=== PATIENT | female | born 1985 | race Caucasian/White ===

== ENCOUNTER 2019-08-30 10:26 | Inpatient (IN) | payer BC, OTHER ==
[~2019-08-30] VITALS: Ht 172.7 cm; Wt 73.8 kg
[2019-08-30] MEDS ORDERED: SODIUM CHLORIDE 0.9% 1,000 ML IV ONE ×2 (11:15→16:00)
[2019-08-30] MEDS ORDERED: PROMETHAZINE HCL 25 MG/ML 1ML IV ONE ×2 (11:30→14:15)
[2019-08-30 11:32] LABS: Basophils # (auto) 0.1 10 ^3/uL (0-0.2); Basophils % (auto) 0.6 % (0.0-2.0); Eosinophils # (auto) 0 10 ^3/uL (0-0.8); Hematocrit 42.5 % (36.0-46.0); Hemoglobin 14.3 g/dL (12.2-16.2); Lymphocytes # (auto) 1.8 10 ^3/uL (0.4-5.4); Lymphocytes % (auto) 8.4 % (10.0-50.0); Mean Corpuscular Hemoglobin 28.7 pg (28.0-32.0); Mean Corpuscular Hgb Conc. 33.8 g/dL (32.0-36.0); Mean Corpuscular Volume 85.1 fL (80.0-100.0); Monocytes # (auto) 1.1 10 ^3/uL (0-1.3); Monocytes % (auto) 4.9 % (0.0-12.0); Neutrophils # (auto) 18.8 10 ^3/uL (1.6-8.6); Neutrophils % (auto) 86.1 % (37.0-80.0); Platelet Count (auto) 344 10^3/uL (140-450); Red Blood Cells 4.99 10^6/uL (4.0-5.20); Red Cell Distribution Width 12.3 % (11.8-14.3); White Blood Cell 21.8 10^3/uL (4.4-10.8)
[2019-08-30] MEDS ORDERED: SODIUM CHLORIDE 0.9% 1,000 ML IVB ONE (11:40)
[2019-08-30 11:46] LABS: Albumin 4.5 g/dL (3.4-5.0); Calcium 9.7 mg/dL (8.5-10.1); Potassium 3.3 mmol/L (3.5-5.1)
[2019-08-30 11:50] LABS: BUN/Creatinine Ratio 15.9; Bilirubin, Total 1.1 mg/dL (0.2-1.0); Total Protein 8.6 g/dL (6.4-8.2)
[2019-08-30 12:53] LABS: Magnesium 2.3 mg/dL (1.6-2.6)
[2019-08-30] MEDS ORDERED: ONDANSETRON HCL 4 MG/2 ML VIAL IV ONE ×2 (13:30→16:00)
[2019-08-30 13:54] LABS: Urine Bacteria FEW /hpf (None Seen); Urine Blood Negative /uL (Negative); Urine Specific Gravity 1.036 (1.001-1.035); Urine WBC 4 /hpf (0 - 5)
[2019-08-30] MEDS ORDERED: cefTRIAXone 1GM/50ML D5W 50 ML IV ONE (14:00)
[2019-08-30] MEDS ORDERED: metroNIDAZOLE 500MG/100ML 100 ML IV ONE (14:00)
[2019-08-30] MEDS ORDERED: MORPHINE SULF INJ 2 MG/ML SYRINGE 1ML IV ONE (14:15)
[2019-08-30] MEDS: POTASSIUM CHL 20MEQ/100ML 100 ML IV SCH ×2 (14:24→15:30)
[2019-08-30 14:26] LABS: Lactic Acid w/Reflex 2.2 mmol/L (0.4-2.0)
[2019-08-30] MEDS ORDERED: MORPHINE SULF INJ 2 MG/ML SYRINGE 1ML IV PRN (16:00)
[2019-08-30] MEDS: SOD CHL 0.9%/ KCL 20MEQ 1,000 ML IV SCH (16:00)
[2019-08-30] MEDS ORDERED: NITROGLYCERIN 0.4 MG SL TAB SL PRN (16:00)
[2019-08-30] MEDS ORDERED: ACETAMINOPHEN 500 MG TAB PO PRN (16:00)
[2019-08-30] MEDS ORDERED: ONDANSETRON HCL 4 MG/2 ML VIAL IV PRN ×2 (16:00→17:15)
[2019-08-30 16:33] LABS: Alcohol, Urine < 3.0 mg/dL (0-10); Amphetamine Screen, Urine NEGATIVE (NEGATIVE); Barbiturate Scree,Urine NEGATIVE (NEGATIVE); Benzodiazephine Screen, Urine NEGATIVE (NEGATIVE); Cannabinoid Screen, Urine POSITIVE (NEGATIVE); Cocaine Screen, Urine NEGATIVE (NEGATIVE); Phencyclidine Screen, Urine NEGATIVE (NEGATIVE)
[2019-08-30 16:40] LABS: Opiate Scree,Urine POSITIVE (NEGATIVE)
[2019-08-30] MEDS: PROMETHAZINE HCL 25 MG/ML 1ML IV PRN (16:44)
[2019-08-30] MEDS: MORPHINE SULF INJ 2 MG/ML SYRINGE 1ML IV PRN ×2 (16:44→21:17)
[2019-08-30] MEDS ORDERED: LORazepam 2MG/ML-1ML VIAL ONE (18:27)
[2019-08-30] MEDS: LORazepam 2MG/ML-1ML VIAL IV PRN (19:03)
[2019-08-30 19:20] VITALS: BP 135/75
--- NOTE | 2019-08-30 19:20 | NUR ---
Telemetry admit from [facility] admitted to Telemetry unit after SBAR received. Patient oriented to BLOSSOM GIRALDO, RN primary RN, unit, room, bed, and unit policies regarding patient care and visiting hours. Patient now on continuous telemetry monitoring, tele box # 65 and telemetry reading on arrival to unit is . Patient placed on bedside oxygen, weighed by bedscale and encouraged to call if they need something. All questions and concerns addressed, patient verbalized understanding. Note: Patient really sleeping, not responding to admission questions.
--- NOTE | 2019-08-30 19:25 | NUR ---
Admission Patient behavior was really fatigued and sleepy. patient only answered half of the questions and would fall asleep on mid answered. Patient stated to [place] of [place] and does not have a pharmacy near by.
[2019-08-30 20:00] VITALS: BP 135/75
[2019-08-30] MEDS: metroNIDAZOLE 500MG/100ML 100 ML IV SCH (20:58)
--- NOTE | 2019-08-30 21:17 | NUR ---
Pain Patient c/o pain /10 to abdomen, pain medication administered.
--- NOTE | 2019-08-30 21:47 | NUR ---
Re Pain Patient resting with eyes closed, no sign of pain or distress. Will continue to monitor.
--- NOTE | 2019-08-31 00:30 | NUR ---
MRSA MRSA swab sent to lab.
--- NOTE | 2019-08-31 03:09 | NUR ---
Nausea Patient c/o nausea, nausea medication administered.
[2019-08-31] MEDS: MORPHINE SULF INJ 2 MG/ML SYRINGE 1ML IV PRN ×5 (03:15→22:36)
--- NOTE | 2019-08-31 03:15 | NUR ---
Pain Patient c/o pain /10 to abdomen, pain medication Administered.
--- NOTE | 2019-08-31 03:39 | NUR ---
Re Nausea Patient resting with eyes closed, no signs of pain, nausea or distress. will continue to monitor.
--- NOTE | 2019-08-31 03:45 | NUR ---
Re Pain Patient resting with eyes closed, no signs of pain or distress. will continue to monitor.
[2019-08-31] MEDS: metroNIDAZOLE 500MG/100ML 100 ML IV SCH ×3 (05:57→21:34)
[2019-08-31 06:02] LABS: Basophils # (auto) 0 10 ^3/uL (0-0.2); Basophils % (auto) 0.2 % (0.0-2.0); Eosinophils # (auto) 0 10 ^3/uL (0-0.8); Eosinophils % (auto) 0.1 % (0.0-7.0); Hematocrit 41.5 % (36.0-46.0); Hemoglobin 14.2 g/dL (12.2-16.2); Lymphocytes # (auto) 2.1 10 ^3/uL (0.4-5.4); Lymphocytes % (auto) 10.5 % (10.0-50.0); Mean Corpuscular Hemoglobin 29.2 pg (28.0-32.0); Mean Corpuscular Hgb Conc. 34.2 g/dL (32.0-36.0); Mean Corpuscular Volume 85.5 fL (80.0-100.0); Monocytes # (auto) 1.6 10 ^3/uL (0-1.3); Neutrophils # (auto) 16.3 10 ^3/uL (1.6-8.6); Neutrophils % (auto) 81.2 % (37.0-80.0); Platelet Count (auto) 296 10^3/uL (140-450); Red Blood Cells 4.85 10^6/uL (4.0-5.20); Red Cell Distribution Width 12.7 % (11.8-14.3); White Blood Cell 20.1 10^3/uL (4.4-10.8)
[2019-08-31 06:29] LABS: Potassium 3.4 mmol/L (3.5-5.1)
[2019-08-31 06:51] LABS: BUN/Creatinine Ratio 12.5; Bilirubin, Total 1.3 mg/dL (0.2-1.0); Calcium 8.4 mg/dL (8.5-10.1); Total Protein 7.5 g/dL (6.4-8.2)
--- NOTE | 2019-08-31 07:09 | NUR ---
Closing Note patient status unchanged, endorsed care to dayshift nurse.
--- NOTE | 2019-08-31 07:30 | NUR ---
RECEIVED REPORT FROM NIGHT NURSE. PATENT RESTING IN BED, NO DISTRESS NOTED. WILL CONTINUE TO MONITOR.
[2019-08-31 09:00] VITALS: BP 126/62
[2019-08-31] MEDS: PROMETHAZINE HCL 25 MG/ML 1ML IV PRN (09:31)
[2019-08-31] MEDS: cefTRIAXone 1GM/50ML D5W 50 ML IV SCH (09:31)
[2019-08-31] MEDS: PANTOPRAZOLE 40 MG/10 ML VIAL INJ IV SCH (09:31)
[2019-08-31] MEDS: SOD CHL 0.9%/ KCL 20MEQ 1,000 ML IV SCH ×3 (09:32→15:19)
[2019-08-31 13:07] VITALS: BP 127/75
[2019-08-31] MEDS: PROCHLORPERAZINE EDISYLATE 5 MG/ML 2ML VIAL IV PRN ×3 (13:38→22:43)
[2019-08-31 16:59] VITALS: BP 129/62
--- NOTE | 2019-08-31 19:20 | NUR ---
Opening Shift Note Assumed care of patient, awake and alert. No S/S of distress/SOB or pain. Instructed on POC and to call for assist PRN, will continue to monitor for changes Q1hr and PRN.
--- NOTE | 2019-08-31 19:25 | NUR ---
RE Pain "my pain is 5 for now" will continue to monitor.
--- NOTE | 2019-08-31 21:10 | NUR ---
RE Temperature 98.4, will continue to monitor.
[2019-08-31 22:00] VITALS: BP 120/75
--- NOTE | 2019-08-31 22:36 | NUR ---
Pain Patient c/o pain 09/17 to abdomen, pain medication administered
--- NOTE | 2019-08-31 23:06 | NUR ---
RE Pain Patient resting with eyes closed, no signs of distress or pain. will continue to monitor.
[2019-09-01] MEDS: PROCHLORPERAZINE EDISYLATE 5 MG/ML 2ML VIAL IV PRN ×2 (02:36→20:21)
[2019-09-01] MEDS: MORPHINE SULF INJ 2 MG/ML SYRINGE 1ML IV PRN ×3 (02:37→20:26)
--- NOTE | 2019-09-01 02:37 | NUR ---
Pain & Nausea Patient c/o nausea and pain 09/17. pain & nausea medication administered.
--- NOTE | 2019-09-01 03:07 | NUR ---
RE Pain Patient resting with eyes closed, no sign of pain or distress. will continue to monitor.
[2019-09-01 05:00] VITALS: BP 119/73
[2019-09-01] MEDS: metroNIDAZOLE 500MG/100ML 100 ML IV SCH ×3 (05:27→22:07)
[2019-09-01] MEDS: SOD CHL 0.9%/ KCL 20MEQ 1,000 ML IV SCH ×4 (05:36→22:17)
[2019-09-01 05:43] LABS: Basophils # (auto) 0.1 10 ^3/uL (0-0.2); Basophils % (auto) 0.5 % (0.0-2.0); Eosinophils # (auto) 0 10 ^3/uL (0-0.8); Eosinophils % (auto) 0.2 % (0.0-7.0); Hematocrit 41.3 % (36.0-46.0); Hemoglobin 14.2 g/dL (12.2-16.2); Lymphocytes # (auto) 2.1 10 ^3/uL (0.4-5.4); Lymphocytes % (auto) 16.5 % (10.0-50.0); Mean Corpuscular Hemoglobin 29.1 pg (28.0-32.0); Mean Corpuscular Hgb Conc. 34.4 g/dL (32.0-36.0); Mean Corpuscular Volume 84.6 fL (80.0-100.0); Monocytes # (auto) 1.1 10 ^3/uL (0-1.3); Monocytes % (auto) 8.5 % (0.0-12.0); Neutrophils # (auto) 9.5 10 ^3/uL (1.6-8.6); Neutrophils % (auto) 74.3 % (37.0-80.0); Platelet Count (auto) 293 10^3/uL (140-450); Red Blood Cells 4.89 10^6/uL (4.0-5.20); Red Cell Distribution Width 12.8 % (11.8-14.3); White Blood Cell 12.8 10^3/uL (4.4-10.8)
[2019-09-01 06:01] LABS: BUN/Creatinine Ratio 14.7; Calcium 8.3 mg/dL (8.5-10.1); Magnesium 2.4 mg/dL (1.6-2.6); Potassium 3.4 mmol/L (3.5-5.1)
--- NOTE | 2019-09-01 07:26 | NUR ---
Closing Note Patient status unchanged, endorsed care to dayshift nurse.
[2019-09-01 08:54] VITALS: BP 116/76
[2019-09-01] MEDS: cefTRIAXone 1GM/50ML D5W 50 ML IV SCH (10:00)
[2019-09-01] MEDS: PANTOPRAZOLE 40 MG/10 ML VIAL INJ IV SCH (10:00)
--- NOTE | 2019-09-01 10:12 | NUR ---
Est energy needs 3068-5650 kcal (25-27 kcal/kg BW 77kg) Est protein needs 62-77g (0.8-1g/kg BW 77kg) Will reassess prn. Addendum: 09/01/19 at [address] Amended: Links added.
[2019-09-01] MEDS ORDERED: POTASSIUM EFFERVESENT TAB 25 MEQ PO ONE (12:00)
[2019-09-01 13:00] VITALS: BP 140/87
[2019-09-01 13:49] LABS: INR 1.01 (0.9-1.15)
[2019-09-01] MEDS: PROMETHAZINE HCL 25 MG/ML 1ML IV PRN (14:43)
[2019-09-01 17:17] VITALS: BP 125/68
--- NOTE | 2019-09-01 20:26 | NUR ---
Pain & Nausea patient c/o pain / to abdominal pain and nausea. pain medication and nausea medication administered.
--- NOTE | 2019-09-01 21:06 | NUR ---
RE Pain Patient resting with eyes closed, no sign of pain or distress. will continue to monitor. Addendum: 09/01/19 at 2308 by BLOSSOM GIRALDO RN RN Actual time 2055
[2019-09-01 22:00] VITALS: BP 117/79
[2019-09-01] MEDS: LORazepam 2MG/ML-1ML VIAL IV PRN (22:07)
[2019-09-02] VITALS (7 sets, daily range): BP systolic 96–133; BP diastolic 60–81
[2019-09-02] MEDS: metroNIDAZOLE 500MG/100ML 100 ML IV SCH ×3 (06:00→21:13)
[2019-09-02 06:04] LABS: Basophils # (auto) 0.1 10 ^3/uL (0-0.2); Basophils % (auto) 0.6 % (0.0-2.0); Eosinophils # (auto) 0.1 10 ^3/uL (0-0.8); Eosinophils % (auto) 0.7 % (0.0-7.0); Hematocrit 43.8 % (36.0-46.0); Hemoglobin 14.8 g/dL (12.2-16.2); Lymphocytes # (auto) 2.9 10 ^3/uL (0.4-5.4); Lymphocytes % (auto) 24.4 % (10.0-50.0); Mean Corpuscular Hemoglobin 28.9 pg (28.0-32.0); Mean Corpuscular Hgb Conc. 33.9 g/dL (32.0-36.0); Mean Corpuscular Volume 85.2 fL (80.0-100.0); Monocytes # (auto) 0.9 10 ^3/uL (0-1.3); Monocytes % (auto) 7.5 % (0.0-12.0); Neutrophils # (auto) 7.8 10 ^3/uL (1.6-8.6); Neutrophils % (auto) 66.8 % (37.0-80.0); Platelet Count (auto) 314 10^3/uL (140-450); Red Blood Cells 5.15 10^6/uL (4.0-5.20); Red Cell Distribution Width 12.3 % (11.8-14.3); White Blood Cell 11.7 10^3/uL (4.4-10.8)
--- NOTE | 2019-09-02 06:10 | NUR ---
IV removal IV DC'd with clean sterile technique, catheter fully intact. Pressure dressing applied to site. Patient tolerated well.
--- NOTE | 2019-09-02 06:15 | NUR ---
IV insertion IV access obtained, via clean sterile technique by inserting 22 gauge catheter at after attempts. IV secured properly. No trauma to site. Patient tolerated well.
[2019-09-02] MEDS: PROCHLORPERAZINE EDISYLATE 5 MG/ML 2ML VIAL IV PRN ×2 (06:31→12:16)
--- NOTE | 2019-09-02 06:31 | NUR ---
Nausea Meds Patient c/o nausea, nausea medication administered.
--- NOTE | 2019-09-02 06:35 | NUR ---
POA Patient is requesting POA information to get her more involved with [facility]. Will endorsed information to day shift nurse.
[2019-09-02 06:39] LABS: Potassium 3.5 mmol/L (3.5-5.1)
[2019-09-02 06:53] LABS: BUN/Creatinine Ratio 11.5; Calcium 8.5 mg/dL (8.5-10.1); Magnesium 2.6 mg/dL (1.6-2.6)
--- NOTE | 2019-09-02 07:25 | NUR ---
Closing Note Patient status unchanged, endorsed care to dayshift nurse.
[2019-09-02] MEDS: SOD CHL 0.9%/ KCL 20MEQ 1,000 ML IV SCH ×3 (08:00→23:24)
[2019-09-02] MEDS: PANTOPRAZOLE 40 MG/10 ML VIAL INJ IV SCH ×2 (09:08→21:14)
[2019-09-02] MEDS: cefTRIAXone 1GM/50ML D5W 50 ML IV SCH (09:08)
[2019-09-02] MEDS ORDERED: SODIUM CHLORIDE LOCK 10 ML ONE (12:40)
[2019-09-02] MEDS ORDERED: LIDOCAINE VISCOUS 2% 15ML UD ONE (12:41)
--- NOTE | 2019-09-02 13:02 | NUR ---
PAIN MEDICATION SPOKE WITH DR. MURRAY, MADE AWARE PT IS ASKING FOR PAIN MEDICATION OTHER THAN MORPHINE BECAUSE IT MAKES HER NAUSEOUS. RECEIVED ORDER FOR DILAUDID 0.5 MG IV Q 6HRS PRN FOR PAIN.
--- NOTE | 2019-09-02 14:04 | NUR ---
pt transported to pre-op via bed, pt is awake and alert, no signs of distress, consents for procedure signed.
[2019-09-02] MEDS: fentaNYL CITRATE 100 MCG/2 ML VL ONE ×3 (14:26→14:32)
[2019-09-02] MEDS: MIDAZOLAM HCL 5 MG/ML-1ML VIAL ONE ×3 (14:26→14:32)
[2019-09-02] MEDS: diphenhdrAMINE HCL 50 MG/1 ML VL ONE ×2 (14:27→14:33)
--- NOTE | 2019-09-02 15:40 | NUR ---
received pt from PACU via bed, pt is drowsy but arousable, vital signs are stable, will continue to monitor.
[2019-09-02] MEDS: SUCRALFATE 1 GM/10 ML ORAL SUSP PO SCH ×2 (17:31→21:14)
--- NOTE | 2019-09-02 19:00 | NUR ---
Opening Shift Note Assumed care of patient, awake and alert. No S/S of distress/SOB or pain. Instructed on POC and to call for assist PRN, will continue to monitor for changes Q1hr and PRN. Patient in the lowest possible position with bed rails up x2 and call light within reach.
--- NOTE | 2019-09-02 20:00 | NUR ---
MD Charla abreu MD pagearmin to clarify orders for patients colonoscopy. Order to 09/03/19 at 0500 to obtain consent for, but patient is not scheduled to receive golytly until 09/02 at 1400. Called to clarify if patient will be going in the AM or for another time. Surgery schedule does not show that patient is on for tomorrow. Waiting for call back.
[2019-09-02] MEDS: HYDROmorphone HCL 2 MG/ML VL IV PRN (21:14)
[2019-09-02] MEDS: PROMETHAZINE HCL 25 MG/ML 1ML IV PRN (21:27)
--- NOTE | 2019-09-02 23:01 | NUR ---
called back. Clarification given. Patient to go for colonoscopy on Saturday09/04/2019 and will start the gol09/03/2019 at 1400 to prepare patient. Will endorse clarification to AM nurse.
[2019-09-03 05:00] VITALS: BP 144/66
[2019-09-03] MEDS: metroNIDAZOLE 500MG/100ML 100 ML IV SCH ×3 (05:33→21:56)
[2019-09-03] MEDS: PROMETHAZINE HCL 25 MG/ML 1ML IV PRN ×2 (05:34→20:26)
[2019-09-03] MEDS: HYDROmorphone HCL 2 MG/ML VL IV PRN ×2 (05:34→20:27)
[2019-09-03] MEDS: SUCRALFATE 1 GM/10 ML ORAL SUSP PO SCH ×4 (06:02→21:56)
[2019-09-03 06:19] LABS: Basophils # (auto) 0.1 10 ^3/uL (0-0.2); Basophils % (auto) 0.8 % (0.0-2.0); Eosinophils # (auto) 0.1 10 ^3/uL (0-0.8); Eosinophils % (auto) 1.2 % (0.0-7.0); Hematocrit 40.7 % (36.0-46.0); Lymphocytes # (auto) 2.2 10 ^3/uL (0.4-5.4); Lymphocytes % (auto) 23.5 % (10.0-50.0); Mean Corpuscular Hemoglobin 29.4 pg (28.0-32.0); Mean Corpuscular Hgb Conc. 34.5 g/dL (32.0-36.0); Mean Corpuscular Volume 85.2 fL (80.0-100.0); Monocytes # (auto) 0.8 10 ^3/uL (0-1.3); Monocytes % (auto) 8.9 % (0.0-12.0); Neutrophils # (auto) 6.2 10 ^3/uL (1.6-8.6); Neutrophils % (auto) 65.6 % (37.0-80.0); Nucleated Red Blood Cells % 0.2 %; Platelet Count (auto) 291 10^3/uL (140-450); Red Blood Cells 4.78 10^6/uL (4.0-5.20); Red Cell Distribution Width 12.6 % (11.8-14.3); White Blood Cell 9.5 10^3/uL (4.4-10.8)
[2019-09-03 06:39] LABS: Potassium 3.5 mmol/L (3.5-5.1)
[2019-09-03 06:47] LABS: Calcium 8.2 mg/dL (8.5-10.1)
[2019-09-03] MEDS: cefTRIAXone 1GM/50ML D5W 50 ML IV SCH (08:50)
[2019-09-03 09:00] VITALS: BP 114/65
[2019-09-03] MEDS: PROCHLORPERAZINE EDISYLATE 5 MG/ML 2ML VIAL IV PRN (09:13)
[2019-09-03] MEDS: PANTOPRAZOLE 40 MG/10 ML VIAL INJ IV SCH ×2 (09:20→21:56)
[2019-09-03] MEDS: SOD CHL 0.9%/ KCL 20MEQ 1,000 ML IV SCH ×2 (09:21→14:30)
[2019-09-03 13:00] VITALS: BP 113/66
[2019-09-03] MEDS ORDERED: GOLYTELY 4L KIT PO ONE (14:00)
--- NOTE | 2019-09-03 15:06 | NUR ---
Nutrition Followup Notes Pt wt is 74.5 kg Pt was sleeping with no relatives at bedside when rounded this morning. Pt is with a Clear Liquid diet, appetite is fair, aeb ave 63% x2 PO intake per RN doc. Noted pt is with nausea and some epigastric pain per MD doc. Will continue to monitor PO status, skin status, pertinent labs and weight trends. Will f/u in 2-3 days. Est energy needs 7483-1399 kcal (25-27 kcal/kg BW 77kg) Est protein needs 62-77g (0.8-1g/kg BW 77kg) Will reassess prn. LABS: Ca 8.2 L, GI: Pt had no BM noted per RN doc. BS: 20 low risk. Please refer to wound assessment report for full details. PES: Altered nutrition related labs r/t current medical condition aeb pt with elevated LFTs Inadequate oral intake r/t current medical condition aeb pt with clear liq diet order with 25% po intake per RN doc Comments 1) Continue to monitor po status, labs, skin 2) Refer pt to [facility] on DC 3) Continue current plan of care
[2019-09-03 16:47] VITALS: BP 117/70
--- NOTE | 2019-09-03 17:00 | NUR ---
IV insertion IV access obtained, via clean sterile technique by inserting 22 gauge catheter at after attempt(s). IV secured properly. No trauma to site. Patient tolerated well.
--- NOTE | 2019-09-03 19:30 | NUR ---
Opening Shift Note Assumed care of patient, awake and alert. Complain of nausea and pain. NPO after midnight for colonoscopy tomorrow. Instructed on POC and to call for assist PRN.
[2019-09-03 20:00] VITALS: BP 118/76
[2019-09-03 21:43] VITALS: BP 118/76
[2019-09-04] MEDS: SOD CHL 0.9%/ KCL 20MEQ 1,000 ML IV SCH ×2 (01:30→16:00)
[2019-09-04 05:25] LABS: Albumin 3.5 g/dL (3.4-5.0); Bilirubin, Direct 0.2 mg/dL (0-0.2)
[2019-09-04 05:26] LABS: INR 1.11 (0.9-1.15); Partial Thromboplastin Time 26.6 sec (23.64-32.05)
[2019-09-04 05:29] LABS: Bilirubin, Total 0.7 mg/dL (0.2-1.0); Total Protein 6.9 g/dL (6.4-8.2)
[2019-09-04 05:30] VITALS: BP 114/71
[2019-09-04] MEDS ORDERED: MAGNESIUM CITRATE SOLUTION 300 ML BTL PO ONE (06:00)
[2019-09-04] MEDS: SUCRALFATE 1 GM/10 ML ORAL SUSP PO SCH ×4 (06:00→21:29)
[2019-09-04] MEDS: metroNIDAZOLE 500MG/100ML 100 ML IV SCH ×3 (06:11→21:29)
[2019-09-04] MEDS: PROCHLORPERAZINE EDISYLATE 5 MG/ML 2ML VIAL IV PRN (06:25)
[2019-09-04] MEDS ORDERED: SODIUM CHLORIDE LOCK 10 ML ONE (08:13)
[2019-09-04] MEDS: HYDROmorphone HCL 2 MG/ML VL IV PRN ×2 (08:24→18:49)
[2019-09-04] MEDS: PANTOPRAZOLE 40 MG/10 ML VIAL INJ IV SCH ×2 (08:24→21:29)
[2019-09-04] MEDS: cefTRIAXone 1GM/50ML D5W 50 ML IV SCH (08:24)
[2019-09-04 09:00] VITALS: BP 127/85
[2019-09-04] MEDS: PROMETHAZINE HCL 25 MG/ML 1ML IV PRN ×2 (10:52→18:49)
[2019-09-04 13:00] VITALS: BP 133/90
--- NOTE | 2019-09-04 13:40 | NUR ---
Patient taken to preop via bed received by Nikkie HENDRIX. No distress noted at time of drop off.
[2019-09-04] MEDS: MIDAZOLAM HCL 5 MG/ML-1ML VIAL ONE ×4 (15:04→15:10)
[2019-09-04] MEDS: fentaNYL CITRATE 100 MCG/2 ML VL ONE ×3 (15:04→15:08)
[2019-09-04] MEDS: diphenhdrAMINE HCL 50 MG/1 ML VL ONE ×2 (15:04→15:06)
--- NOTE | 2019-09-04 16:00 | NUR ---
Patient back in unit. Resting in bed with even and unlabored respirations. No s/s of sob/ distress. Will continue to monitor.
[2019-09-04 17:00] VITALS: BP 112/60
--- NOTE | 2019-09-04 19:40 | NUR ---
Opening Shift Note Assumed care of patient, awake and alert. Complained of tolerable abdominal pain. Instructed on POC and to call for assist PRN, patient verbalized understanding. Safety precaution in place, call light within reach, will continue to monitor for changes Q1hr and PRN.
[2019-09-04 21:47] VITALS: BP 131/86
[2019-09-05] MEDS: HYDROmorphone HCL 2 MG/ML VL IV PRN ×3 (01:29→21:52)
[2019-09-05 05:43] VITALS: BP 103/68
[2019-09-05] MEDS: SOD CHL 0.9%/ KCL 20MEQ 1,000 ML IV SCH ×2 (05:59→18:43)
[2019-09-05] MEDS: metroNIDAZOLE 500MG/100ML 100 ML IV SCH ×3 (06:00→21:50)
[2019-09-05] MEDS: SUCRALFATE 1 GM/10 ML ORAL SUSP PO SCH ×4 (06:01→21:51)
[2019-09-05] MEDS: PROCHLORPERAZINE EDISYLATE 5 MG/ML 2ML VIAL IV PRN (07:52)
[2019-09-05] MEDS: PANTOPRAZOLE 40 MG/10 ML VIAL INJ IV SCH ×2 (08:38→21:51)
[2019-09-05] MEDS: cefTRIAXone 1GM/50ML D5W 50 ML IV SCH (08:38)
[2019-09-05 09:00] VITALS: BP 113/73
[2019-09-05] MEDS: PROMETHAZINE HCL 25 MG/ML 1ML IV PRN (12:42)
[2019-09-05 12:46] VITALS: BP 113/65
--- NOTE | 2019-09-05 14:01 | NUR ---
Spoke to Dr. Devon Castillo MD updated on patients status. Per MD patient is stable to discharge from GI perspective. Will notify hospitalist.
--- NOTE | 2019-09-05 15:28 | NUR ---
Nutrition Followup Notes wt: 73.8 kg Pt was sleeping with no relatives at bedside when rounded this morning. pt is now advanced to [facility] soft with inadequate PO of < 50% x 4per RN Est energy needs 3919-8902 kcal (25-27 kcal/kg BW 77kg) , Est protein needs 62-77g (0.8-1g/kg BW 77kg). Will reassess prn. LABS: CA 8.2 L, GI: Pt had 1 BM today per RN doc. BS: 20 low risk. Please refer to wound assessment report for full details. PES: Altered nutrition related labs r/t current medical condition aeb pt with elevated LFTs Inadequate oral intake r/t current medical condition aeb pt with clear liq diet order with 25% po intake per RN doc Comments 1) Continue to monitor po status, labs, skin 2) Refer pt to [facility] on DC 3) Continue current plan of care. F/u mod 3-5 days
[2019-09-05 17:00] VITALS: BP 107/66
--- NOTE | 2019-09-05 18:18 | NUR ---
IV insertion IV access obtained, via clean sterile technique by inserting 22 gauge catheter at right shoulder after 2 attempts. IV secured properly. No trauma to site. Patient tolerated well.
--- NOTE | 2019-09-05 18:20 | NUR ---
IV removal RFA IV DC'd with clean sterile technique, catheter fully intact. Pressure dressing applied to site. Patient tolerated well. NOTE: IV was reddened and painful to patient.
--- NOTE | 2019-09-05 19:25 | NUR ---
Opening Shift Note Assumed care of patient, AOX4. No S/S of distress/SOB. Fall and safety precautions in place. Call light within reach and able to use. Instructed on POC and to call for assist PRN, patient verbalized understanding and in agreement. Will continue to monitor for changes Q1hr and PRN.
[2019-09-05 22:00] VITALS: BP 122/62
[2019-09-06] MEDS: metroNIDAZOLE 500MG/100ML 100 ML IV SCH ×3 (05:27→21:15)
[2019-09-06] MEDS: SOD CHL 0.9%/ KCL 20MEQ 1,000 ML IV SCH ×2 (05:36→23:12)
[2019-09-06] MEDS: SUCRALFATE 1 GM/10 ML ORAL SUSP PO SCH ×4 (06:20→21:16)
[2019-09-06 06:29] VITALS: BP 106/67
--- NOTE | 2019-09-06 07:05 | NUR ---
CLOSING NOTE FALL AND SAFETY PRECAUTIONS IN PLACE. PATIENT IN NO S/S OF DISTRESS. CALL LIGHT WITHIN REACH AND ABLE TO USE. REPORT GIVEN TO DAY SHIFT RN.
[2019-09-06 07:52] LABS: Basophils # (auto) 0 10 ^3/uL (0-0.2); Basophils % (auto) 0.8 % (0.0-2.0); Eosinophils # (auto) 0.2 10 ^3/uL (0-0.8); Eosinophils % (auto) 3.9 % (0.0-7.0); Hematocrit 42.7 % (36.0-46.0); Hemoglobin 14.5 g/dL (12.2-16.2); Lymphocytes # (auto) 1.6 10 ^3/uL (0.4-5.4); Lymphocytes % (auto) 27.4 % (10.0-50.0); Mean Corpuscular Hemoglobin 29.3 pg (28.0-32.0); Mean Corpuscular Volume 86.1 fL (80.0-100.0); Monocytes # (auto) 0.9 10 ^3/uL (0-1.3); Monocytes % (auto) 15.6 % (0.0-12.0); Neutrophils # (auto) 3.1 10 ^3/uL (1.6-8.6); Neutrophils % (auto) 52.3 % (37.0-80.0); Nucleated Red Blood Cells % 0.1 %; Platelet Count (auto) 331 10^3/uL (140-450); Red Blood Cells 4.96 10^6/uL (4.0-5.20); Red Cell Distribution Width 12.9 % (11.8-14.3)
[2019-09-06 08:09] LABS: Calcium 8.8 mg/dL (8.5-10.1); Potassium 3.2 mmol/L (3.5-5.1)
[2019-09-06 08:12] LABS: BUN/Creatinine Ratio 7.9
[2019-09-06 09:00] VITALS: BP 105/70
[2019-09-06] MEDS: HYDROmorphone HCL 2 MG/ML VL IV PRN (09:02)
[2019-09-06] MEDS: PANTOPRAZOLE 40 MG/10 ML VIAL INJ IV SCH ×2 (09:02→21:15)
[2019-09-06] MEDS: cefTRIAXone 1GM/50ML D5W 50 ML IV SCH (09:02)
--- NOTE | 2019-09-06 10:00 | NUR ---
PT REPORTS IV RIGHT SHOULDER IS HURTING, ASSESSED IV SITE, ERYTHEMA AND MINOR SWELLING NOTED. PT REPORTS 7/10 PAIN AT SITE. IV DC'D PRESSURE DRESSING APPLIED. ATTEMPTED NEW IV TWICE USING STERILE TECHNIQUE, UNABLE TO GAIN ACCESS.
--- NOTE | 2019-09-06 11:07 | NUR ---
NURSE REPORTS PT HR IN 160'S. ASSESSED PT, PT SITTING UP IN BED PERFORMING BED BATH ON HERSELF. PT REPORTS NO DISTRESS AT THIS TIME. ASSESSED TELE MONITOR, HR 147 BPM. DID STAT ECG, ECG READS HR 101 SINUS TACHYCARDIA. VITALS: 98.8, 108/61, HR 120, 02 100% ON 2 L NC, RR 16. SAW DR MURRAY AT NURSING STATION, NOTIFIED PT HR IN 160'S AND GAVE HIM ECG, AWARE AND SIGNED ECG, NO NEW ORDERS.
--- NOTE | 2019-09-06 12:00 | NUR ---
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
[2019-09-06 13:00] VITALS: BP 108/78
[2019-09-06] MEDS ORDERED: POTASSIUM EFFERVESENT TAB 25 MEQ PO ONE (15:15)
--- NOTE | 2019-09-06 15:25 | NUR ---
CHARGE HAS NOT COME, MARIO HENDRIX TOOK A LOOK AT PATIENT, HE REPORTS HE IS NOT ABLE TO OBTAIN ACCESS, HE REPORTS HE WILL ASK CHARGE NURSE THELMA.
--- NOTE | 2019-09-06 16:06 | NUR ---
CALLED JACQUES BROWNE AND REQUESTED IV, JACQUES BROWNE REPORTS SHE WILL DO IV.
[2019-09-06 17:00] VITALS: BP 115/67
--- NOTE | 2019-09-06 17:15 | NUR ---
CHARGE NURSE THELMA INSERTED NEW IV, 22 G TO THE LAC ON FIRST ATTEMPT. PT TOLERATED PROCEDURE WELL. IV FLUSHED WITH 10 MLS 0.9 NS.
--- NOTE | 2019-09-06 19:40 | NUR ---
Opening Shift Note Assumed care of patient, alert and orientated. No S/S of distress/SOB. Fall and safety precautions in place. Call light within reach and able to use. Instructed on POC and to call for assist PRN, patient verbalized understanding and in agreement. Will continue to monitor for changes Q1hr and PRN.
[2019-09-06] MEDS: LORazepam 2MG/ML-1ML VIAL IV PRN (22:00)
[2019-09-06 23:33] VITALS: BP 103/60
[2019-09-07 05:00] VITALS: BP 128/88
[2019-09-07] MEDS: metroNIDAZOLE 500MG/100ML 100 ML IV SCH ×2 (05:09→14:00)
[2019-09-07] MEDS: SUCRALFATE 1 GM/10 ML ORAL SUSP PO SCH ×2 (06:10→10:04)
--- NOTE | 2019-09-07 07:22 | NUR ---
PT RESTING IN BED, NO DISTRESS NOTED. PT REPORTS NO BLAIR AT THIS TIME. PT INSTRUCTED NOT TO EAT UNTIL AFTER HIDA SCAN, PT AWARE, WILL CONTINUE TO MONITOR.
[2019-09-07 08:00] VITALS: BP 104/63
[2019-09-07] MEDS: PANTOPRAZOLE 40 MG/10 ML VIAL INJ IV SCH (10:04)
[2019-09-07] MEDS: cefTRIAXone 1GM/50ML D5W 50 ML IV SCH (10:04)
--- NOTE | 2019-09-07 10:05 | NUR ---
assessment No post discharge needs identified. Addendum: 09/07/19 at 1522 by Justine DIETZ Amended: Links added.
[2019-09-07] MEDS: SOD CHL 0.9%/ KCL 20MEQ 1,000 ML IV SCH (12:31)
[2019-09-07 12:45] VITALS: BP 106/67
[2019-09-07 13:21] VITALS: BP 106/67
--- NOTE | 2019-09-07 15:02 | NUR ---
Discharge instructions given as ordered. Encourage to follow up with PMD in 2-3 weeks for GI as instructed. All questions and concerns addressed. Patient verbalized understanding. Medication reconciliation form completed and copy given to patient. Release of medical record papers given to patient per Dr Stack request. Patient advised to fill out forms and go to medical records to get additional GI records needed for her primary. Patient verbalized understanding. Patient reports she is missing a pair of black neoprene shorts with pink trim, called medical records and left message requesting they call patient back if found. Left patient phone number. IV removed with catheter intact, pressure dressing applied. Telemetry unit returned to ICU. Patient taken to vehicle via wheelchair with all personal belongings, accompanied by staff. No distress noted at time of departure.
== END 2019-09-07 14:30 | disposition home or self-care (01) | DRG 871 ==
LOC: ER 10:26 → TELE 10:27 → TELE-WESTW 19:20
PROVIDERS: ADMIT Nurse Practitioner Acute Care; ATTEND Internal Medicine
PROC: 0DB88ZX Excision of Small Intestine, Via Natural or Artificial Opening Endoscopic, Diagnostic (ICD-10-PCS; 2019-09-02)
PROC: 0DB68ZX Excision of Stomach, Via Natural or Artificial Opening Endoscopic, Diagnostic (ICD-10-PCS; principal; 2019-09-02 14:21)
PROC: 0DBE8ZX Excision of Large Intestine, Via Natural or Artificial Opening Endoscopic, Diagnostic (ICD-10-PCS; 2019-09-04)
DX: A41.9 Sepsis, unspecified organism (principal); N17.0 Acute kidney failure with tubular necrosis; N39.0 Urinary tract infection, site not specified; K22.10 Ulcer of esophagus without bleeding; K52.9 Noninfective gastroenteritis and colitis, unspecified; E87.6 Hypokalemia; E86.0 Dehydration; N18.9 Chronic kidney disease, unspecified; K44.9 Diaphragmatic hernia without obstruction or gangrene; K29.60 Other gastritis without bleeding; F41.9 Anxiety disorder, unspecified; F32.9 Major depressive disorder, single episode, unspecified; G43.909 Migraine, unspecified, not intractable, without status migrainosus; K80.20 Calculus of gallbladder without cholecystitis without obstruction; Z88.6 Allergy status to analgesic agent; Z88.8 Allergy status to other drugs, medicaments and biological substances; Z82.49 Family history of ischemic heart disease and other diseases of the circulatory system
CPT/HCPCS: 36415; 43239; 45380; 71045; 74176; 76705; 78226; 80048; 80053; 80076; 80307; 81001; 81025; 82150; 83605; 83690; 83735; 84132; 84443; 84702; 85025; 85610; 85730; 86850; 86900; 86901; 87040; 87081; 87086; C9113; G0378; J0696; J2250; J2405; J3480; J3490